=== PATIENT | female | born 1965 | race Caucasian/White ===

== ENCOUNTER 2016-05-15 19:43 | Inpatient (IN) ==
[2016-05-15] MEDS ORDERED: MVI, adult with vitamin K 10 ML in 0.9 % Sodium Chloride 1,000 ML IVC ONE (19:54)
[2016-05-15] MEDS ORDERED: Metoclopramide 10 MG/2 ML VIAL IVP ONE (20:03)
[2016-05-15] MEDS ORDERED: Thiamine (B-1) 100 MG in D5% in Water 50 ML IVPB STA (20:04)
[2016-05-15] MEDS ORDERED: Aspirin 81 MG TAB.CHEW PO ONE (20:30)
[2016-05-15] MEDS ORDERED: Nitroglycerin 0.4 MG TAB.SUBL SL PRN (20:31)
[2016-05-15 20:45] LABS: Bilirubin,Urine Moderate (Negative); Blood,Urine Negative (Negative); Clarity,Urine Cloudy (Clear); Color,Urine Orange (Yellow); Glucose,Urine (UA) Normal (Normal); Ketones,Urine Trace mg/dL (Negative); Leukocyte Esterase,Urine Small (Negative); Nitrite,Urine Positive (Negative); Protein,Urine >=300 mg/dL (Neg-Trace); Specific Gravity,Urine > 1.030 (1.010-1.025); Urobilinogen,Urine Normal (Normal)
[2016-05-15] MEDS ORDERED: VITAMIN K IVC ONE (20:45)
[2016-05-15] MEDS ORDERED: [UNRECOGNIZED DRUG - OTHER] IVC ONE (20:45)
[2016-05-15] MEDS ORDERED: THIAMINE IVC ONE (20:45)
[2016-05-15] MEDS ORDERED: MVI IVC ONE (20:45)
[2016-05-15 20:47] LABS: Bacteria,Urine None Seen per hpf (None-Few); Squamous Epithelial Cell,Urine Many per lpf (None-Few); WBC,Urine 50-100 per hpf (0-3)
[2016-05-15 20:49] LABS: Hematocrit 47.4 % (35.3-44.9); Hemoglobin 16.9 g/dL (11.5-15.4); Immature Granulocytes % 0.2 % (0-4); Lymphocytes # 0.4 K/mcL (0.6-4.6); Lymphocytes % 4.9 %; Mean Corpuscular HGB Conc 35.7 g/dL (31.6-35.5); Mean Corpuscular Hemoglobin 33.7 pg (28.0-33.3); Mean Corpuscular Volume 94.6 fL (83.0-100.0); Mean Platelet Volume 9.5 fL (9.4-12.4); Monocytes # 0.4 K/mcL (0.0-1.3); Monocytes % 4.6 %; Neutrophils # 7.4 K/mcL (1.6-8.9); Platelet Count 193 K/mcL (140-400); Red Blood Count 5.01 M/mcL (3.82-4.97); Red Cell Distribution Width 12.6 % (11.5-14.5); Segmented Neutrophils % 90.3 %
[2016-05-15 20:52] LABS: Amphetamine Screen,Urine Negative ng/mL (Cutoff=1000); Barbiturate Screen,Urine Negative ng/mL (Cutoff=200); Benzodiazepines Screen,Urine Positive ng/mL (Cutoff=200); Cannabinoid Screen,Urine Positive ng/mL (Cutoff = 50); Cocaine Screen,Urine Negative ng/mL (Cutoff= 300); Opiate Screen,Urine Positive ng/mL (Cutoff=300); Phencyclidine Screen,Urine Negative ng/mL (Cutoff=25)
[2016-05-15 20:54] LABS: INR 1.1; Prothrombin Time 11.4 Seconds (9.4-12.1)
[2016-05-15 20:58] LABS: Hyaline Casts,Urine Few per lpf (None-Few)
[2016-05-15 21:02] LABS: BUN/Creatinine Ratio 24 (6-26); Blood Urea Nitrogen 25 mg/dL (7-20); Calcium 10.6 mg/dL (8.6-10.8); Carbon Dioxide 30 mEq/L (19-29); Chloride 83 mEq/L (98-109); Glucose 220 mg/dL (70-99); Osmolality,Calculated 299 (280-300); Potassium 2.8 mEq/L (3.5-4.5); Sodium 139 mEq/L (136-145); eGFR For African Americans > 60 (> 60); eGFR For Non-African Americans 54 (> 60)
[2016-05-15 21:06] LABS: Alanine Aminotransferase 47 Units/L (0-55); Albumin/Globulin Ratio 1.2 (1.1-2.2); Alkaline Phosphatase 129 Units/L (38-126); Aspartate Amino Transferase 81 Units/L (5-34); Bilirubin,Direct 0.9 mg/dL (0.0-0.5); Bilirubin,Indirect 1.7 mg/dL (0.0-1.2); Bilirubin,Total 2.6 mg/dL (0.2-1.2); Globulin 4.1 g/dL (2.4-3.5); Magnesium 1.9 mg/dL (1.6-2.6); Phosphorous 4.1 mg/dL (2.3-4.7); Total Protein 9.1 g/dL (6.0-8.3)
[2016-05-15 21:07] LABS: Acetaminophen < 1.0 mcg/mL (10-30); Salicylate < 5.0 mg/dL (15-30)
[2016-05-15] MEDS ORDERED: Potassium Chloride 40 MEQ, Lidocaine 1% 2 ML in D5% in Water 500 ML IVPB ONE (21:16)
--- NOTE | 2016-05-15 21:24 | Emergency Department Note ---
Disposition Clinical Impression: Hypokalemia, Seizure, Abnormal EKG, Chest pain, UTI (urinary tract infection), Nausea and vomiting, Polysubstance abuse Alcohol dependence with withdrawal Qualifiers: Complication of substance-induced condition: uncomplicated Qualified Code(s): F10.230 - Alcohol dependence with withdrawal, uncomplicated Clinical Impression: (Ruled Out): NSTEMI (non-ST elevated myocardial infarction) Disposition: Admitted As Inpatient Condition: Good Referrals: NO,PCP [Primary Care Provider] - Forms: ED Satisfaction Letter Time of Disposition: 21:28 Seizure HPI - General Chief Complaint: ED Seizure Stated Complaint: Seizure Time Seen by Provider: 05/15/16 19:46 Source: patient, EMS Limitations: no limitations Nursing Notes Reviewed: Yes Vital Signs Reviewed: Yes - History of Present Illness HPI Narrative: 51 year old female with HX of alcoholism/pancreatitis/and HTN. Mark had a seizure with EMS and which was witnessed. Mark states she now has chest pain with exertional dyspnea and nausea/vomitting. Mark states that she low bit her tongue. Family states that when she had her seizure that she did not vomit and or have any loss of urine. Patient states that she has been trying ot cut down her alcohol from a 1/5 of vodka daily to 1/2 of 1/5 down to 1/4 of a 1/5. And over the weekend she tried to go completely without but today had a relapse and started drinking again. Mark was actively vomitting on presentation with chest pressure described 10/15. Family members state that she was most recently admitted to the hospital for pancreatitis secondary to alcoholism and had hypokalemia at that time as well. - Related Data Home Medications Medication Instructions Recorded Confirmed No Known Home Drugs 05/15/16 05/15/16 Allergies Allergy/AdvReac Type Severity Reaction Status Date / Time sulfamethoxazole Allergy Hives Verified 04/03/16 08:29 [From Bactrim] trimethoprim [From Bactrim] Allergy Hives Verified 04/03/16 08:29 codeine AdvReac Nausea Verified 03/31/16 13:16 meclizine AdvReac Headache Verified 03/31/16 13:16 Constitutional: Reports: weakness. Denies: fever, chills, weight change Eyes: Denies: eye pain, eye discharge, vision change ENT ED: Denies: ear pain, throat pain, dental pain, hearing loss, epistaxis, congestion, dysphagia Cardiovascular: Reports: chest pain, palpitations, dyspnea on exertion. Denies : edema, syncope Respiratory: Reports: dyspnea. Denies: cough, wheezes, hemoptysis, stridor Gastrointestinal: Reports: nausea, vomiting. Denies: abdominal pain, diarrhea, constipation, hematemesis, melena, hematochezia Genitourinary: Denies: dysuria, frequency, hematuria, discharge Musculoskeletal: Denies: back pain, neck pain, arthralgia, myalgia Integumentary: Denies: rash, abrasion, lesions Neurological: Denies: headache, weakness, numbness, paresthesias, confusion, abnormal gait, vertigo Psychiatric: Denies: anxiety, depression, suicidal thoughts, homicidal thoughts , auditory hallucinations, visual hallucinations Past Medical History - Past Medical History Medical history: Reports: no medical history Surgical history: Reports: , other (Colonoscopy last in 2012, endometrial ablation) Psychiatric history: Reports: no psych history DIETITIAN HELPER history: Reports: no DIETITIAN HELPER history - Social History Smoking Status: Current every day smoker Smokeless Tobacco Status: No Alcohol use: Reports: none Drug use: Reports: none Physical Exam - General Limitations: no limitations General appearance: appears intoxicated, cachectic - Head Head exam: atraumatic, normocephalic, normal inspection - Eye Eye exam: Present: normal appearance, PERRL, EOMI - Expanded Eye Exam Eyelids: bilateral: normal inspection Pupils: Left: reactive - ENT ENT exam: normal exam, normal oropharynx, mucous membranes moist - Expanded ENT Exam External ear exam: Present: normal external inspection Mouth exam: Present: normal external inspection Teeth exam: Present: normal inspection Throat exam: Present: normal inspection - Neck Neck exam: Present: normal inspection, full ROM, trachea midline - Chest Chest inspection: Present: normal inspection, symmetric chest wall rise - Respiratory Respiratory exam: Present: normal lung sounds bilaterally - Cardiovascular Cardiovascular exam: Present: normal rhythm, tachycardia, normal heart sounds - Abdominal Exam Abdominal exam: Present: soft, Non-Tender. Absent: tenderness, distention, guarding, rebound, rigidity - Extremities Exam Extremities exam: Present: normal inspection, full ROM. Absent: tenderness, pedal edema - Expanded Upper Extremity Exam Shoulder exam: Present: normal inspection, full ROM Arm exam: Present: normal inspection, full ROM Elbow exam: Present: normal inspection, full ROM Forearm/Wrist exam: Present: normal inspection, full ROM Hand exam: Present: normal inspection, full ROM Vascular exam: Normal: capillary refill, radial pulse - Expanded Lower Extremity Exam Hip/Pelvis exam: Present: normal inspection, full ROM Upper leg exam: Present: normal inspection, full ROM Knee exam: Present: normal inspection, full ROM Lower leg exam: Present: normal inspection, full ROM Ankle exam: Present: normal inspection, full ROM Foot/toe exam: Present: normal inspection, full ROM Neurovascular/Tendon exam: Absent: motor deficit, sensory deficit, tendon deficit - Back Exam Back exam: Present: normal inspection, full ROM. Absent: tenderness - Neurological Exam Neurological exam: Present: alert, oriented X3 - Expanded Neurological Exam Patient oriented to: Present: person, place, time Coma Scale Eye Opening: Spontaneous Coma Scale Motor Response: Obeys Commands Coma Scale Verbal Response: Oriented Coma Scale Total: 15 - Psychiatric Psychiatric exam: Present: normal affect, normal mood - Skin Skin exam: Present: warm, dry, intact, normal color Course - Reevaluation(s) Reevaluation #1: we will do alcohol withdrawl protocol and treat her as NSTEMI secondary to new ST depression in lateral leads. Patient will also have banana bag given and protonix for GI protection. Chest pain is now resolved after nitro therapy Time: 21:26 - Consultations Consultation #1: attending spoke with Dr. Ingram (cards) and they will see him in consult with admission to hospitalist. Vital Signs Temperature 98.2 F 05/15/16 19:46 Pulse Rate 118 05/15/16 19:46 Respiratory Rate 12 05/15/16 19:46 Blood Pressure 148/117 05/15/16 19:46 O2 Sat by Pulse Oximetry 97 05/15/16 19:46 Temperature 98.2 F 05/15/16 19:46 Pulse Rate 106 05/15/16 22:32 Respiratory Rate 16 05/15/16 22:32 Blood Pressure 158/100 05/15/16 22:32 O2 Sat by Pulse Oximetry 92 05/15/16 22:32 Oxygen Delivery Oxygen Delivery Room Air Seizure - Lab Data Result diagrams: 05/15/16 20:39 05/15/16 20:39 Lab Results 05/15/16 05/15/16 05/15/16 Range/Units 19:46 20:30 20:30 WBC (4.3-11.1) K/mcL RBC (3.82-4.97) M/mcL Hgb (11.5-15.4) g/dL Hct (35.3-44.9) % MCV (83.0-100.0) fL MCH (28.0-33.3) pg MCHC (31.6-35.5) g/dL RDW (11.5-14.5) % Plt Count (140-400) K/mcL MPV (9.4-12.4) fL Immature Gran % (0-4) % Seg Neutrophils % % Lymphocytes % % Monocytes % % Eosinophils % % Basophils % % Neutrophils # (1.6-8.9) K/mcL Lymphocytes # (0.6-4.6) K/mcL Monocytes # (0.0-1.3) K/mcL Eosinophils # (0.0-0.6) K/mcL Basophils # (0.0-0.2) K/mcL PT (9.4-12.1) Seconds INR APTT (26.0-36.0) Seconds Sodium (136-145) mEq/L Potassium (3.5-4.5) mEq/L Chloride (98-109) mEq/L Carbon Dioxide (19-29) mEq/L BUN (7-20) mg/dL Creatinine (0.57-1.11) mg/dL Est GFR ( Amer) (> 60) Est GFR (Non-Af Amer) (> 60) BUN/Creatinine Ratio (6-26) Glucose (70-99) mg/dL POC Glucose 230 H (58-89) Calculated Osmolality (280-300) Calcium (8.6-10.8) mg/dL Phosphorus (2.3-4.7) mg/dL Magnesium (1.6-2.6) mg/dL Total Bilirubin (0.2-1.2) mg/dL Direct Bilirubin (0.0-0.5) mg/dL Indirect Bilirubin (0.0-1.2) mg/dL AST (5-34) Units/L ALT (0-55) Units/L Alkaline Phosphatase (38-126) Units/L Troponin I (0-0.03) ng/mL Serum Total Protein (6.0-8.3) g/dL Albumin (3.5-5.0) g/dL Globulin (2.4-3.5) g/dL Albumin/Globulin Ratio (1.1-2.2) Lipase (8-78) Units/L Urine Color [place] A (Yellow) Urine Clarity Cloudy A (Clear) Urine pH 6.0 (5.0-8.0) pH Units Ur Specific [place] > 1.030 H (1.010-1.025) Urine Protein >=300 H (Neg-Trace) mg/dL Urine Glucose (UA) Normal (Normal) mg/dL Urine Ketones Trace H (Negative) mg/dL Urine Blood Negative (Negative) Urine Nitrite Positive A (Negative) Urine Bilirubin Moderate H (Negative) Urine Urobilinogen Normal (Normal) mg/dL Ur Leukocyte Esterase Small H (Negative) Urine Microscopic RBC 5-15 H (0-3) per hpf Urine Microscopic WBC 50-100 H (0-3) per hpf Ur Squamous Epith Cells Many H (None-Few) per lpf Urine Bacteria None Seen (None-Few) per hpf Hyaline Casts Few (None-Few) per lpf Urine Yeast Test Not Performed Ur Culture Indicated? YES A (NO) Salicylates (15-30) mg/dL Urine Opiates Screen Positive H (Qclyih=322) ng/mL Acetaminophen (10-30) mcg/mL Ur Barbiturates Screen Negative (Gskejr=728) ng/mL Ur Phencyclidine Scrn Negative (Cutoff=25) ng/mL Ur Amphetamines Screen Negative (Xrepxo=5511) ng/mL U Benzodiazepines Scrn Positive H (Dooztl=063) ng/mL Urine Cocaine Screen Negative (Cutoff= 300) ng/mL U Marijuana (THC) Screen Positive H (Cutoff = 50) ng/mL Ethyl Alcohol (0-10) mg/dL 05/15/16 05/15/16 05/15/16 Range/Units 20:39 20:39 20:39 WBC (4.3-11.1) K/mcL RBC (3.82-4.97) M/mcL Hgb (11.5-15.4) g/dL Hct (35.3-44.9) % MCV (83.0-100.0) fL MCH (28.0-33.3) pg MCHC (31.6-35.5) g/dL RDW (11.5-14.5) % Plt Count (140-400) K/mcL MPV (9.4-12.4) fL Immature Gran % (0-4) % Seg Neutrophils % % Lymphocytes % % Monocytes % % Eosinophils % % Basophils % % Neutrophils # (1.6-8.9) K/mcL Lymphocytes # (0.6-4.6) K/mcL Monocytes # (0.0-1.3) K/mcL Eosinophils # (0.0-0.6) K/mcL Basophils # (0.0-0.2) K/mcL PT 11.4 (9.4-12.1) Seconds INR 1.1 APTT 26.0 (26.0-36.0) Seconds Sodium (136-145) mEq/L Potassium (3.5-4.5) mEq/L Chloride (98-109) mEq/L Carbon Dioxide (19-29) mEq/L BUN (7-20) mg/dL Creatinine (0.57-1.11) mg/dL Est GFR ( Amer) (> 60) Est GFR (Non-Af Amer) (> 60) BUN/Creatinine Ratio (6-26) Glucose (70-99) mg/dL POC Glucose (58-89) Calculated Osmolality (280-300) Calcium (8.6-10.8) mg/dL Phosphorus 4.1 (2.3-4.7) mg/dL Magnesium 1.9 (1.6-2.6) mg/dL Total Bilirubin 2.6 H (0.2-1.2) mg/dL Direct Bilirubin 0.9 H (0.0-0.5) mg/dL Indirect Bilirubin 1.7 H (0.0-1.2) mg/dL AST 81 H (5-34) Units/L ALT 47 (0-55) Units/L Alkaline Phosphatase 129 H (38-126) Units/L Troponin I (0-0.03) ng/mL Serum Total Protein 9.1 H (6.0-8.3) g/dL Albumin 5.0 (3.5-5.0) g/dL Globulin 4.1 H (2.4-3.5) g/dL Albumin/Globulin Ratio 1.2 (1.1-2.2) Lipase (8-78) Units/L Urine Color (Yellow) Urine Clarity (Clear) Urine pH (5.0-8.0) pH Units Ur Specific [place] (1.010-1.025) Urine Protein (Neg-Trace) mg/dL Urine Glucose (UA) (Normal) mg/dL Urine Ketones (Negative) mg/dL Urine Blood (Negative) Urine Nitrite (Negative) Urine Bilirubin (Negative) Urine Urobilinogen (Normal) mg/dL Ur Leukocyte Esterase (Negative) Urine Microscopic RBC (0-3) per hpf Urine Microscopic WBC (0-3) per hpf Ur Squamous Epith Cells (None-Few) per lpf Urine Bacteria (None-Few) per hpf Hyaline Casts (None-Few) per lpf Urine Yeast Ur Culture Indicated? (NO) Salicylates < 5.0 L (15-30) mg/dL Urine Opiates Screen (Orauoh=280) ng/mL Acetaminophen < 1.0 L (10-30) mcg/mL Ur Barbiturates Screen (Extqnd=813) ng/mL Ur Phencyclidine Scrn (Cutoff=25) ng/mL Ur Amphetamines Screen (Gkqriv=8972) ng/mL U Benzodiazepines Scrn (Wrkyvs=489) ng/mL Urine Cocaine Screen (Cutoff= 300) ng/mL U Marijuana (THC) Screen (Cutoff = 50) ng/mL Ethyl Alcohol < 10 (0-10) mg/dL 05/15/16 05/15/16 05/15/16 Range/Units 20:39 20:39 20:39 WBC 8.2 (4.3-11.1) K/mcL RBC 5.01 H (3.82-4.97) M/mcL Hgb 16.9 H (11.5-15.4) g/dL Hct 47.4 H (35.3-44.9) % MCV 94.6 (83.0-100.0) fL MCH 33.7 H (28.0-33.3) pg MCHC 35.7 H (31.6-35.5) g/dL RDW 12.6 (11.5-14.5) % Plt Count 193 (140-400) K/mcL MPV 9.5 (9.4-12.4) fL Immature Gran % 0.2 (0-4) % Seg Neutrophils % 90.3 % Lymphocytes % 4.9 % Monocytes % 4.6 % Eosinophils % 0.0 % Basophils % 0.0 % Neutrophils # 7.4 (1.6-8.9) K/mcL Lymphocytes # 0.4 L (0.6-4.6) K/mcL Monocytes # 0.4 (0.0-1.3) K/mcL Eosinophils # 0.0 (0.0-0.6) K/mcL Basophils # 0.0 (0.0-0.2) K/mcL PT (9.4-12.1) Seconds INR APTT (26.0-36.0) Seconds Sodium 139 (136-145) mEq/L Potassium 2.8 L (3.5-4.5) mEq/L Chloride 83 L (98-109) mEq/L Carbon Dioxide 30 H (19-29) mEq/L BUN 25 H (7-20) mg/dL Creatinine 1.06 (0.57-1.11) mg/dL Est GFR ( Amer) > 60 (> 60) Est GFR (Non-Af Amer) 54 L (> 60) BUN/Creatinine Ratio 24 (6-26) Glucose 220 H (70-99) mg/dL POC Glucose (58-89) Calculated Osmolality 299 (280-300) Calcium 10.6 (8.6-10.8) mg/dL Phosphorus (2.3-4.7) mg/dL Magnesium (1.6-2.6) mg/dL Total Bilirubin (0.2-1.2) mg/dL Direct Bilirubin (0.0-0.5) mg/dL Indirect Bilirubin (0.0-1.2) mg/dL AST (5-34) Units/L ALT (0-55) Units/L Alkaline Phosphatase (38-126) Units/L Troponin I (0-0.03) ng/mL Serum Total Protein (6.0-8.3) g/dL Albumin (3.5-5.0) g/dL Globulin (2.4-3.5) g/dL Albumin/Globulin Ratio (1.1-2.2) Lipase 4 L (8-78) Units/L Urine Color (Yellow) Urine Clarity (Clear) Urine pH (5.0-8.0) pH Units Ur Specific [place] (1.010-1.025) Urine Protein (Neg-Trace) mg/dL Urine Glucose (UA) (Normal) mg/dL Urine Ketones (Negative) mg/dL Urine Blood (Negative) Urine Nitrite (Negative) Urine Bilirubin (Negative) Urine Urobilinogen (Normal) mg/dL Ur Leukocyte Esterase (Negative) Urine Microscopic RBC (0-3) per hpf Urine Microscopic WBC (0-3) per hpf Ur Squamous Epith Cells (None-Few) per lpf Urine Bacteria (None-Few) per hpf Hyaline Casts (None-Few) per lpf Urine Yeast Ur Culture Indicated? (NO) Salicylates (15-30) mg/dL Urine Opiates Screen (Oukihv=494) ng/mL Acetaminophen (10-30) mcg/mL Ur Barbiturates Screen (Rlxbzm=107) ng/mL Ur Phencyclidine Scrn (Cutoff=25) ng/mL Ur Amphetamines Screen (Kticcm=6251) ng/mL U Benzodiazepines Scrn (Cblink=935) ng/mL Urine Cocaine Screen (Cutoff= 300) ng/mL U Marijuana (THC) Screen (Cutoff = 50) ng/mL Ethyl Alcohol (0-10) mg/dL 05/15/16 Range/Units 20:39 WBC (4.3-11.1) K/mcL RBC (3.82-4.97) M/mcL Hgb (11.5-15.4) g/dL Hct (35.3-44.9) % MCV (83.0-100.0) fL MCH (28.0-33.3) pg MCHC (31.6-35.5) g/dL RDW (11.5-14.5) % Plt Count (140-400) K/mcL MPV (9.4-12.4) fL Immature Gran % (0-4) % Seg Neutrophils % % Lymphocytes % % Monocytes % % Eosinophils % % Basophils % % Neutrophils # (1.6-8.9) K/mcL Lymphocytes # (0.6-4.6) K/mcL Monocytes # (0.0-1.3) K/mcL Eosinophils # (0.0-0.6) K/mcL Basophils # (0.0-0.2) K/mcL PT (9.4-12.1) Seconds INR APTT (26.0-36.0) Seconds Sodium (136-145) mEq/L Potassium (3.5-4.5) mEq/L Chloride (98-109) mEq/L Carbon Dioxide (19-29) mEq/L BUN (7-20) mg/dL Creatinine (0.57-1.11) mg/dL Est GFR ( Amer) (> 60) Est GFR (Non-Af Amer) (> 60) BUN/Creatinine Ratio (6-26) Glucose (70-99) mg/dL POC Glucose (58-89) Calculated Osmolality (280-300) Calcium (8.6-10.8) mg/dL Phosphorus (2.3-4.7) mg/dL Magnesium (1.6-2.6) mg/dL Total Bilirubin (0.2-1.2) mg/dL Direct Bilirubin (0.0-0.5) mg/dL Indirect Bilirubin (0.0-1.2) mg/dL AST (5-34) Units/L ALT (0-55) Units/L Alkaline Phosphatase (38-126) Units/L Troponin I 0.00 (0-0.03) ng/mL Serum Total Protein (6.0-8.3) g/dL Albumin (3.5-5.0) g/dL Globulin (2.4-3.5) g/dL Albumin/Globulin Ratio (1.1-2.2) Lipase (8-78) Units/L Urine Color (Yellow) Urine Clarity (Clear) Urine pH (5.0-8.0) pH Units Ur Specific [place] (1.010-1.025) Urine Protein (Neg-Trace) mg/dL Urine Glucose (UA) (Normal) mg/dL Urine Ketones (Negative) mg/dL Urine Blood (Negative) Urine Nitrite (Negative) Urine Bilirubin (Negative) Urine Urobilinogen (Normal) mg/dL Ur Leukocyte Esterase (Negative) Urine Microscopic RBC (0-3) per hpf Urine Microscopic WBC (0-3) per hpf Ur Squamous Epith Cells (None-Few) per lpf Urine Bacteria (None-Few) per hpf Hyaline Casts (None-Few) per lpf Urine Yeast Ur Culture Indicated? (NO) Salicylates (15-30) mg/dL Urine Opiates Screen (Unsurd=774) ng/mL Acetaminophen (10-30) mcg/mL Ur Barbiturates Screen (Nxuktk=353) ng/mL Ur Phencyclidine Scrn (Cutoff=25) ng/mL Ur Amphetamines Screen (Uwfepa=5241) ng/mL U Benzodiazepines Scrn (Crgqzs=855) ng/mL Urine Cocaine Screen (Cutoff= 300) ng/mL U Marijuana (THC) Screen (Cutoff = 50) ng/mL Ethyl Alcohol (0-10) mg/dL - EKG Data EKG attestation: Yes I reviewed and interpreted this EKG. EKG results narrative: sinus tachycardia with rate of 120. mild QT prolongation. NO STEMI. ST depresssion in lateral leads with Avr elevation. 1944 sinus tachycardia with rate of 109. ST depression in lateral leads 2021 righ sided EKG: sinus tachycardia with no ST elevation in lateral leads. ST depression in II, III, avf. 2026 Critical Care Time Critical Care Time: Yes Total Critical Care Time: 30 Attestation: The high probability of a clinically significant, sudden or life threatening deterioration of the [cardiovascular and neurologic] system(s) required my full and direct attention, intervention and personal management. The aggregate critical care time was [30] minutes. This time is in addition to time spent performing reported procedures but includes the following: [X] Data Review and interpretation [X] Patient assessment and monitoring of vital signs [X] Documentation [X] Medication orders and management S.B.A.R. - S.B.A.R. Transition of Care: Admission Situation: Demographics, MOA Background: Presenting Complaint, Relevant PMH, Meds, & Allergies Assessment: Vital Signs, Course and respsone to treatment, Exam Concerns, Patient/Family Expectation, Pertinant Lab Results, Outstanding Labs S.B.A.R. Report Given to: Dr. Stack S.B.A.RColton Repor Time: 21:57 Attestation Statement - Attestation Attestation: I personally interviewed and examined this patient and my medical decision- making was reviewed with the ED Resident Physician, Dr. Del Castillo. I agree with the documented findings, disposition and treatment plan as described except to the extent set forth below. Vision is a 51-year-old white female with a history of chronic alcohol abuse who presents to the emergency department by EMS following an alcohol withdrawal seizure. She arrived with a GCS of 15, awake alert and oriented 4, with no focal neurologic deficits and clear speech on arrival. Patient was complaining of some left-sided chest pain that was nonradiating at a 6 out of 10 in severity associated with nausea and vomiting on arrival. Patient states she has been experiencing this pain for the last 3-4 days intermittently and seems worsened by vomiting that she has been having. Patient reports trying this decrease her amount of alcohol intake over the past 4 days and over the past 24 hours had had almost no use of alcohol which is a considerable decrease for her. Patient began having worsening chest pain, intractable nausea and vomiting and made attempts to drink some alcohol approximately one hour prior to seizure onset. Patient denies any history of prior seizures. Patient denies any abdominal pain, no diaphoresis, no fevers or chills, no hemoptysis or hematemesis. On arrival to the ED patient's initial EKG showed a sinus tachycardia with lateral ST depression, this was compared to prior EKG and appears to be a new finding. Patient was given aspirin and a nitroglycerin trial and was chest pain -free following one nitroglycerin. Nitropaste was applied and patient remained chest pain free throughout her ED course. Serial EKGs remained unchanged. Patient remained hemodynamically stable, received IV fluids and banana bag. CT head was obtained which was unremarkable. Portable chest x-ray was also unremarkable. On lab evaluation patient was found to have low potassium equal to 2.8 with a normal magnesium. Due to occasional nausea and vomiting in the emergency department patient will receive IV replacement of her potassium. Patient continues to be on a media monitor at this time. Patient was also found to have a urinary tract infection or be started on antibiotics. Patient did receive IV antiemetics and is resting more comfortably at this time with no further vomiting. I did speak with Dr. Ingram in cardiology at 2120, and discussed patient's abnormal EKG with chest pain. Patient's troponin is negative. Patient is chest pain-free following aspirin and nitroglycerin administration. At this time he did not recommend any further intervention and agreed to consult on the patient in the morning in regards to her abnormal EKG. I also spoke with Dr. Stack, who accepted the patient for admission and further medical management.
[2016-05-15] MEDS ORDERED: Nitroglycerin 1 INCH/GM PACKET TP ONE (22:00)
[2016-05-16] MEDS ORDERED: *HR* LORazepam 2 MG/ML VIAL IVP ONE (00:50)
[2016-05-16] MEDS ORDERED: *HR* LORazepam 2 MG/ML VIAL IVP PRN (00:51)
[2016-05-16] MEDS ORDERED: Naloxone 0.4 MG/ML INJ IVP PRN (03:16)
[2016-05-16] MEDS ORDERED: Acetaminophen 325 MG TABLET PO ONE (03:19)
--- NOTE | 2016-05-16 03:22 | Internal Med History&Physical ---
Date of Encounter: 05/16/16 Time of Encounter: 02:00 Assessment and Plan (1) Alcohol withdrawal seizure Current visit: Yes Status: Acute Pt abruptly reduced alcohol intake and reportedly had GTC seizures. CT head is negative. Suspect ETOH withdrawal seizures. No need for antiepileptics at this time. Ativan PRN; seizure precautions; Alcohol withdrawal protocol. Qualifiers: Complication of substance-induced condition: uncomplicated Qualified Code(s ): F10.230 - Alcohol dependence with withdrawal, uncomplicated (2) Alcohol dependence with withdrawal Current visit: Yes Status: Acute Start on alcohol withdrawal protocol. Vitamin supplements -thiamin; folate supplements. Social service consult. Qualifiers: Complication of substance-induced condition: with unspecified complication Qualified Code(s): F10.239 - Alcohol dependence with withdrawal, unspecified (3) Hypokalemia Current visit: Yes Status: Acute Replenish Potassium. Monitor potassium, Mg (4) Abnormal EKG Current visit: Yes Status: Acute Monitor Troponin. Abnormal EKG could be secondary her seizures. (5) UTI (urinary tract infection) Current visit: Yes Status: Acute Urine cutures pending. Treat with ceftriaxone Qualifiers: Urinary tract infection type: acute cystitis Hematuria presence: without hematuria Qualified Code(s): N30.00 - Acute cystitis without hematuria (6) Chest pain Current visit: Yes Status: Acute Possibly non-cardiac. Will trend troponins and keep her on cardiac monitor technician. Qualifiers: Chest pain type: other chest pain Qualified Code(s): R07.89 - Other chest pain; R07.8 - Other chest pain (7) Nicotine dependence Current visit: Yes Status: Chronic Pt declined nicotine patches Qualifiers: Nicotine product type: cigarettes Substance use status: unspecified nicotine-induced disorder Qualified Code(s): F17.219 - Nicotine dependence, cigarettes, with unspecified nicotine-induced disorders Internal Medicine - H&P: HPI Chief complaint: Seizures Admitted From: Emergency Dept Plans for Post Hospital Care: Home History of present illness: Ms. Aguilar is a 51 year old female with HX of alcoholism/pancreatitis/and HTN. Patient reports h/o alcohol abuse and was sober for about 6 months in the past and relapsed. She admits to drinking one fifth vodka a day. She tried to cut down and stop alcohol over the weekend. She apparently had a GTC seizure witnessed by the EMS, hence brought to the ER. She is admitted to the hospitalist service for further management. Pt is keen to come off alcohol. She had episode of seizures, after coming to the medical floor, before I could see her. She reports tongue bite and incontinence of urine, with seizures. She reports sore throat from vomiting. Reports chest pressure on the lower sternal area, non radiating, 8/10. No associated palpitations; no significant improvement with nitroglycerine in the ER. She denies h/o abdominal pain, hemetemesis, melena, hematochezia, dysuria, weakness of extremities. Past Med Surg Social Fam HX - Past Medical History Medical history: GERD, hypertension, seizures Psychiatric history: no psych history - Past Surgical History Surgical History: , other - Social History Smoking Status: Current every day smoker Packs per day: 2 Smokeless Tobacco Status: No Alcohol use: heavy Drug use: opiates - Family History Mother Age: 75 Family Member Ethnicity: Non- Living Status: Still Living Hx Family Musculoskeletal Disorders: Yes (Arthritis, Bilateral TKR) Father Age: 76 Family Member Ethnicity: Non- Living Status: Still Living Hx Family Cardiac Disorders: Yes (Pacemaker, 2 NH,) Internal Medicine - H&P: Meds No Known Home Drugs 05/15/16 [History] Allergies sulfamethoxazole [From Bactrim] Allergy (Verified 04/03/16 08:29) Hives trimethoprim [From Bactrim] Allergy (Verified 04/03/16 08:29) Hives codeine Adverse Reaction (Verified 03/31/16 13:16) Nausea meclizine Adverse Reaction (Verified 03/31/16 13:16) Headache All Systems PM: A 10-system review of systems was performed and is negative for pertinent findings except as documented above in the HPI. - Constitutional Vitals: Temp Pulse Resp BP Pulse Ox 98.7 F 102 17 143/97 97 05/16/16 00:16 05/16/16 00:16 05/16/16 00:16 05/16/16 00:16 05/16/16 00:16 Exam: Gen: Not in acute distress at the time of my evaluation. HEENT: No conjunctival palor or scleral icterus Neck: No obvious neck swellings Lungs: Clear to auscultation Cardiac: Regular rate and rhythm Chest wall: Left lower sternal tenderness present Abdomen: Mild epigastric tenderness present Neuro: No gross localizing deficits Psych: AAO x 3; fluent speech; No delusions or hallucinations; suicidal or homicidal ideations at the time of my evaluation Extremities: No significant leg edema Skin: no generalized rash Internal Med - H&P Results - Labs CBC & Chem 7: 05/16/16 04:14 05/17/16 04:46 - EKG Data -: EKG Interpreted by Myself EKG shows normal: sinus rhythm - EKG Data EKG comments: Non specific ST depression noted 05/17/16 12:51 - Impressions ITS Impressions Head CT 05/15/16 19:51 IMPRESSION: No acute intracranial abnormality. D/ / Mekhi Pugh MD / Mekhi Pugh MD Interpreting Provider: Mekhi Pugh MD Chest X-Ray 05/15/16 19:52 IMPRESSION: No acute process. D/ / Mekhi Pugh MD / Mekhi Pugh MD Interpreting Provider: Mekhi Pugh MD
[2016-05-16] MEDS ORDERED: Chloraseptic Spray 177 ML BOTTLE MM PRN (03:23)
[2016-05-16] MEDS ORDERED: Pantoprazole 40 MG VIAL IVP SCH (03:23)
[2016-05-16] MEDS ORDERED: 0.9 % Sodium Chloride 1,000 ML IVC SCH (03:30)
[2016-05-16] MEDS: Magic Mouthwash 10 ML UD Cup PO SCH ×4 (04:09→16:28)
[2016-05-16] MEDS ORDERED: *HR* Promethazine 25 MG/ML VIAL IVP ONE (04:13)
[2016-05-16 04:47] LABS: Hematocrit 41.5 % (35.3-44.9); Immature Granulocytes % 0.5 % (0-4); Lymphocytes # 0.6 K/mcL (0.6-4.6); Lymphocytes % 7.1 %; Mean Corpuscular HGB Conc 34.7 g/dL (31.6-35.5); Mean Corpuscular Hemoglobin 33.3 pg (28.0-33.3); Mean Corpuscular Volume 96.1 fL (83.0-100.0); Mean Platelet Volume 9.6 fL (9.4-12.4); Monocytes # 0.7 K/mcL (0.0-1.3); Monocytes % 7.8 %; Neutrophils # 7.3 K/mcL (1.6-8.9); Platelet Count 148 K/mcL (140-400); Red Blood Count 4.32 M/mcL (3.82-4.97); Red Cell Distribution Width 12.5 % (11.5-14.5); Segmented Neutrophils % 84.6 %
[2016-05-16 04:48] LABS: Hemoglobin 14.4 g/dL (11.5-15.4)
[2016-05-16 05:17] LABS: BUN/Creatinine Ratio 29 (6-26); Blood Urea Nitrogen 23 mg/dL (7-20); Calcium 9.6 mg/dL (8.6-10.8); Carbon Dioxide 34 mEq/L (19-29); Chloride 89 mEq/L (98-109); Chol/HDL Ratio 4.1 (0-4.9); Cholesterol 236 mg/dL (< 200); Glucose 100 mg/dL (70-99); HDL Cholesterol 58 mg/dL (40-59); LDL Cholesterol,Calculated 156 mg/dL (0-99); Magnesium 2.1 mg/dL (1.6-2.6); Osmolality,Calculated 284 (280-300); Potassium 3.1 mEq/L (3.5-4.5); Sodium 135 mEq/L (136-145); Triglycerides 110 mg/dL (< 150); eGFR For African Americans > 60 (> 60); eGFR For Non-African Americans > 60 (> 60)
[2016-05-16] MEDS: *HR* Heparin 5,000 UNIT/ML VIAL SQ SCH ×2 (06:19→16:29)
[2016-05-16] MEDS ORDERED: Famotidine 20 MG TABLET PO SCH (07:30)
[2016-05-16] MEDS: Thiamine (B-1) 100 MG TABLET PO SCH (07:46)
[2016-05-16] MEDS: Folic Acid 1 MG TABLET PO SCH (07:46)
[2016-05-16] MEDS: Vitamin B Complex/Vit C/Vit E 1 EACH TABLET PO SCH (07:46)
--- NOTE | 2016-05-16 09:14 | Event Note ---
Date of Encounter: 05/16/16 Time of Encounter: 08:55 Patient doing better. Denies any new episodes of seizures this morning. No palpitations, dizziness or anxiety symptoms. We will continue monitoring for alcohol withdrawal symptoms and continue seizure precautions. Replace potassium. Continue IV hydration.
[2016-05-16] MEDS: 0.9 % Sodium Chloride w KCl 40 MEQ/1,000 ML MLS IVC SCH ×2 (09:48→18:47)
--- NOTE | 2016-05-16 18:50 | Electrocardiograph Report ---
[address] [place], [place] [address] Test Date: 2016-05-15 Pat Name: Theodora Aguilar Department: 102 Room: 2A51 Gender: F Irrigation System Installer: Sourav : 1965 Requested By: Kalpana Gamez Order Number: [id number] Reading MD: Martha Ingram Measurements Intervals [place] Rate: 120 P: 79 CT: 152 QRS: 89 QRSD: 89 T: 66 QT: 426 QTc: 497 Interpretive Statements SINUS TACHYCARDIA NONSPECIFIC ST \T\ T-WAVE ABNORMALITY, CONSIDER ISCHEMIA ABNORMAL RHYTHM ECG Electronically Signed On 05-16-2016 18:48:23 EDT by Martha Ingram
--- NOTE | 2016-05-16 18:51 | Electrocardiograph Report ---
[address] [place] [address] Test Date: 2016-05-15 Pat Name: Theodora Aguilar Department: 105 Room: 2A51 Gender: F Fisher Scallop: : 1965 Requested By: Araceli Del Castillo Order Number: [id number] Reading MD: Martha Ingram Measurements Intervals [place] Rate: 116 P: 80 VA: 147 QRS: 82 QRSD: 94 T: 17 QT: 338 QTc: 407 Interpretive Statements SINUS TACHYCARDIA POSSIBLE RIGHT ATRIAL ENLARGEMENT [0.25mV P WAVE] ANTEROLATERAL MYOCARDIAL INFARCTION [40+ ms Q WAVE IN I/aVL/V3-V6], OF INDETERMINATE AGE ST DEVIATION AND MODERATE T-WAVE ABNORMALITY, CONSIDER INFERIOR ISCHEMIA [-0.1+ mV T WAVE IN II/aVF] Electronically Signed On 05-16-2016 18:49:41 EDT by Martha Ingram
[2016-05-17 05:26] LABS: BUN/Creatinine Ratio 17 (6-26); Calcium 8.8 mg/dL (8.6-10.8); Carbon Dioxide 25 mEq/L (19-29); Chloride 97 mEq/L (98-109); Glucose 108 mg/dL (70-99); Osmolality,Calculated 274 (280-300); Potassium 3.5 mEq/L (3.5-4.5); Sodium 132 mEq/L (136-145); eGFR For African Americans > 60 (> 60); eGFR For Non-African Americans > 60 (> 60)
[2016-05-17 05:42] LABS: Blood Urea Nitrogen 11 mg/dL (7-20)
[2016-05-17] MEDS: Magic Mouthwash 10 ML UD Cup PO SCH ×3 (06:52→16:33)
[2016-05-17] MEDS: *HR* Heparin 5,000 UNIT/ML VIAL SQ SCH ×2 (07:01→17:20)
[2016-05-17] MEDS ORDERED: *HR* LORazepam 2 MG/ML VIAL IM STA (07:28)
--- NOTE | 2016-05-17 09:12 | Internal Med Progress Note ---
Date of Encounter: 05/17/16 Time of Encounter: 09:00 - Assessment and plan (1) Alcohol dependence with withdrawal Current Visit: Yes Status: Acute Assessment and plan: Patient with acute alcohol withdrawal and delirium symptoms. Will continue CIWA protocol. High risk for complications. Monitor vital signs closely. Ativan intravenously as needed. Qualifiers: Complication of substance-induced condition: with delirium Qualified Code(s ): F10.231 - Alcohol dependence with withdrawal delirium (2) Hypokalemia Current Visit: Yes Status: Acute Assessment and plan: This has improved with replacement. Potassium is 3.5 today. (3) Seizure Current Visit: Yes Status: Acute Assessment and plan: No further episodes of seizures. Most likely seizure episode was related to alcohol withdrawal. (4) Abnormal EKG Current Visit: Yes Status: Acute Assessment and plan: Consult cardiology for the further recommendations. Patient's troponins have been negative. No chest pain. (5) UTI (urinary tract infection) Current Visit: Yes Status: Acute Assessment and plan: Urine culture has been negative so far. On ceftriaxone. Will await culture results. Qualifiers: Urinary tract infection type: acute cystitis Hematuria presence: without hematuria Qualified Code(s): N30.00 - Acute cystitis without hematuria (6) Nausea and vomiting Current Visit: Yes Status: Resolved Assessment and plan: This has improved now. Patient is tolerating diet well. Qualifiers: Vomiting type: unspecified Vomiting Intractability: non-intractable Qualified Code(s): R11.2 - Nausea with vomiting, unspecified (7) Polysubstance abuse Current Visit: Yes Status: Acute Assessment and plan: rag production worker has been consulted to provide resources for substance abuse. - Subjective Interval history: Patient is complaining of auditory hallucinations. She is also more anxious and having increasing tremors. No further episodes of seizures. On CIWA protocol she was more agitated this morning and required Ativan. - Constitutional Vitals: Temp Pulse Resp BP Pulse Ox 98.9 F 71 18 167/94 98 05/17/16 06:44 05/17/16 06:44 05/17/16 06:44 05/17/16 06:44 05/17/16 06:44 General appearance: Present: cooperative, mild distress, A&O X 3, answers questions appropriately - ENT Additional comments: Left side of the tongue bruised from bite during her seizure episode. It extends all the way to the back of her tongue on the left side involving the left half of the tongue - Neck Neck exam general surgery: Present: supple, trachea midline. Absent: lymphadenopathy - Respiratory Respiratory exam: Present: CTAB. Absent: accessory muscle use, rales, rhonchi, wheezes - Cardiovascular Cardiovascular exam: Present: RRR, +S1, +S2. Absent: diastolic murmur, gallop, rubs, systolic murmur - GI/Abdominal GI/Abdominal exam: Present: normal bowel sounds, soft, no peritoneal signs. Absent: distended, tenderness - Extremities Exam Extremities exam: Present: warm, radial pulses palpable and symetrical. Absent : calf tenderness, cyanotic, pedal edema - Neurological Exam Neurological exam: Present: CN II-XII intact, oriented X3, no focal deficits. Absent: facial droop, speech deficit Additional comments: Bilateral tremors - Psychiatric Psychiatric exam: Present: anxious Internal Medicine: Result - Labs CBC & Chem 7: 05/16/16 04:14 05/17/16 04:46 Labs: BMP 05/17/16 04:46 Sodium 132 L Potassium 3.5 Chloride 97 L Carbon Dioxide 25 BUN 11 D Creatinine 0.63 Glucose 108 H Calcium 8.8 Cardiac Enzymes 05/16/16 Range/Units 09:21 Troponin I 0.01 (0-0.03) ng/mL - ABG Interpretation ABG results: PT/INR, D-dimer PT 11.4 Seconds (9.4-12.1) 05/15/16 20:39 Consult Discharge Plan - Plan Referrals: NO,PCP [Primary Care Provider] - - Attending Attestation This document has been at least partially created by [employer] recognition technology by Dr. Gamez. Errors in grammar, wording or other phrases may exist. If errors are found after the documentation is signed, they will be addressed individually in the addendum section of this document when appropriate.
[2016-05-17] MEDS: Vitamin B Complex/Vit C/Vit E 1 EACH TABLET PO SCH (09:14)
[2016-05-17] MEDS: *HR* LORazepam 2 MG/ML VIAL IVP PRN ×4 (09:14→20:39)
[2016-05-17] MEDS: Folic Acid 1 MG TABLET PO SCH (09:14)
[2016-05-17] MEDS: Thiamine (B-1) 100 MG TABLET PO SCH (09:14)
[2016-05-17] MEDS: 0.9 % Sodium Chloride w KCl 20 MEQ/1,000 ML MLS IVC SCH ×2 (10:24→14:32)
[2016-05-17] MEDS: Nicotine 2 MG GUM BC PRN (10:32)
[2016-05-17] MEDS ORDERED: Haloperidol Lactate 5 MG/ML VIAL IVP ONE (11:10)
--- NOTE | 2016-05-17 11:15 | Cardiology Consult Note ---
Date of Encounter: 05/17/16 Time of Encounter: 11:15 Assessment and Plan (1) Abnormal EKG Current Visit: Yes Status: Acute Abnormal EKG with ST-T changes throughout on admission. In setting of K 2.8. EKG repeated today with significant improvement/resolution of ST changes. Troponins negative x 3. Pt denies chest pain currently, but does admit to chest pain approximately once per week at both rest and exertion, sometimes worsened on exertion. Will check echo to evaluate structure and function. If no significant findings, will sign off and recommend outpt follow-up and outpt stress test once her acute withdrawing is resolved. Risk factors for CAD include tobacco abuse, HTN, family hx. Anticipate sign off if no significant findings on echo. (2) Chest pain Current Visit: Yes Status: Acute Plan as above. Echo while inpt. If no significant findings, plan for outpt stress test. Troponins negative x 3. Acute EKG changes resolved with electrolyte replacement. Qualifiers: Chest pain type: unspecified Qualified Code(s): R07.9 - Chest pain, unspecified (3) Tobacco abuse Current Visit: No Status: Chronic Smoking cessation counseling given. (4) Alcohol dependence with withdrawal Current Visit: Yes Status: Acute Management per primary team. Qualifiers: Complication of substance-induced condition: with delirium Qualified Code(s ): F10.231 - Alcohol dependence with withdrawal delirium Discussion w patient/family: The assessment and plan as outlined above was discussed with the patient and/or family members who expressed understanding and agreement. All questions were answered. Thank you for involving us in the care of your patient. Please call with any questions. I will discuss all the above with Dr. Martha Ingram and make change as necessary. History of Present Illness Consult date: 05/17/16 Requesting physician: Kalpana Gamez Consult reason: Abnormal EKG Chief complaint: Seizures, ETOH withdrawal History of present illness: Ms. Aguilar is a 51 year old female with PMH of HTN, ETOH abuse, tobacco abuse that presented to ED after having a seizure at home. Drinks 1/5 of Vodka daily, was trying to wean herself off and had a seizure. Upon presentation, found to have a potassium of 2.8 and abnormal EKG. Troponins negative x 3. Cardiology consulted. Pt is currently very confused from ETOH withdraws. Upon questioning she admits to smoking up to 3PPD since the age of 8. She reports her father had CAD, PCI in his 60s and an uncle with PCI in his 50s. She reports intermittent chest pain for years described as heaviness, occurring approximately once per week, occurs with both rest and exertion, sometimes worsened by exertion. She reports chronic dyspnea that she attributes to her tobacco abuse. EKG repeated today once K was improved. EKG is improved. Past Med Surg Social Fam HX - Past Medical History Medical history: GERD, hypertension, seizures Psychiatric history: no psych history - Past Surgical History Surgical History: , other - Social History Smoking Status: Current every day smoker Packs per day: 2 Smokeless Tobacco Status: No Alcohol use: heavy Drug use: opiates - Family History Mother Age: 75 Family Member Ethnicity: Non- Living Status: Still Living Hx Family Musculoskeletal Disorders: Yes (Arthritis, Bilateral TKR) Father Age: 76 Family Member Ethnicity: Non- Living Status: Still Living Hx Family Cardiac Disorders: Yes (Pacemaker, 2 AK,) Medications and Allergies No Known Home Drugs 05/15/16 [History] Allergies sulfamethoxazole [From Bactrim] Allergy (Verified 04/03/16 08:29) Hives trimethoprim [From Bactrim] Allergy (Verified 04/03/16 08:29) Hives codeine Adverse Reaction (Verified 03/31/16 13:16) Nausea meclizine Adverse Reaction (Verified 03/31/16 13:16) Headache All Systems Review: A 10-system review of systems was performed and is negative for pertinent findings except as documented above in the HPI. - Cardiovascular Cardiovascular: as per HPI, chest pain at rest, chest pain with exertion, dyspnea on exertion - Respiratory Respiratory: dyspnea Physical Examination Vital Signs Temp Pulse Resp BP Pulse Ox 05/17/16 06:44 98.9 F 71 18 167/94 98 05/17/16 03:56 99.8 F H 73 15 164/89 97 05/16/16 22:58 99.8 F H 98 17 157/95 99 05/16/16 19:45 99.1 F 96 17 158/91 98 05/16/16 17:10 99.5 F 105 16 159/101 97 05/16/16 11:52 99.2 F 100 16 139/91 97 Intake and Output 05/16/16 05/17/1605/17/17 23:59 07:59 15:59 Intake Total 998 / 998 Output Total 200 / 200 0 / 0 Balance 998 / 998 -200 / -200 0 / 0 Intake: IV Fluids 998 / 998 KCl 40mEq in 0.9% Sodium 998 / 998 Chloride 40 meq In 1,000 ml @ 100 mls/hr IVC .Q10H [facility] Rx#:[id number] Output: Urine 200 / 200 0 / 0 Other: Stool Size Large Stool Consistency formed Stool Color Brown Black # Voids 2 1 # Bowel Movements 1 Weight 51.1 kg Blood Glucose* 90 86 Patient Weight 05/17/16 23:59 Weight 51.1 kg General: Conversant HEENT: Atraumatic, Normocephaly, Mucus Membranes Moist Neck: No JVD, Normal carotid pulses Cardiac: Reg Rate and Rhythm, Normal S1 and S2, No Murmur Lungs: Normal Breath Sounds, No Wheeze, Rales, Rhonchi Neuro: Alert and responsive, Other (confused ) Abdomen: Soft, Non-Tender Skin: No rashes noted on visualized skin Musculoskeletal: No Chest Wall Tenderness Extremities: No Clubbing, No Cyanosis, No Edema, Normal Pulses Results 05/16/16 04:14 05/17/16 04:46 Lab Results 05/17/16 04:46 Sodium 132 L Potassium 3.5 Chloride 97 L Carbon Dioxide 25 BUN 11 D Creatinine 0.63 Glucose 108 H Calcium 8.8 BMP 05/17/16 Range/Units 04:46 Sodium 132 L (136-145) mEq/L Potassium 3.5 (3.5-4.5) mEq/L Chloride 97 L (98-109) mEq/L Carbon Dioxide 25 (19-29) mEq/L BUN 11 D (7-20) mg/dL Creatinine 0.63 (0.57-1.11) mg/dL Glucose 108 H (70-99) mg/dL Calcium 8.8 (8.6-10.8) mg/dL Active Medications Carvedilol (Coreg) 3.125 mg PO BIDWM [facility] PRN Reason: Protocol Stop: 11/15/16 18:23 Last Admin: 05/17/16 09:14 Dose: 3.125 mg Folic Acid (Folic Acid) 1 mg PO DAILY [facility] Stop: 11/15/16 09:01 Last Admin: 05/17/16 09:14 Dose: 1 mg Heparin Sodium (Porcine) (Heparin) 5,000 unit SQ Q12HR [facility] Stop: 11/15/16 06:01 Last Admin: 05/17/16 07:01 Dose: Not Given Hydralazine HCl (Hydralazine) 10 mg IVP Q6HR PRN PRN Reason: Hypertension Stop: 11/15/16 20:32 Ceftriaxone Sodium 1,000 mg/ (Dextrose) 100 mls @ 200 mls/hr IVPB Q24H [facility] Stop: 11/15/16 04:01 Last Admin: 05/17/16 04:19 Dose: 200 mls/hr Potassium Chloride/Sodium Chloride (Kcl 20 Meq In 0.9% Sodium Chloride) 20 meq in 1,000 mls @ 100 mls/hr IVC .Q10H [facility] Stop: 11/16/16 09:31 Last Admin: 05/17/16 10:24 Dose: 100 mls/hr Lorazepam (Ativan) 1 mg IVP Q1H PRN PRN Reason: Alcohol Withdrawal Stop: 11/15/16 00:52 Last Admin: 05/17/16 10:27 Dose: 1 mg Lorazepam (Ativan) 2 mg IVP Q4HR PRN PRN Reason: CIWA Score of 10-21 Stop: 11/15/16 00:52 Last Admin: 05/17/16 09:14 Dose: 2 mg Lorazepam (Ativan) 4 mg IVP Q4HR PRN PRN Reason: CIWA Score of 22-45 Stop: 11/15/16 00:52 Multi-Ingredient Mouthwash/Gargle (Magic Mouthwash) 10 ml PO TIDAC [facility] Stop: 11/15/16 03:31 Last Admin: 05/17/16 06:52 Dose: 10 ml Multi-Ingredient Mucositis [place] (Chloraseptic) 2 spray MM QID PRN PRN Reason: Sore Throat Stop: 11/15/16 03:24 Last Admin: 05/16/16 04:16 Dose: 2 spray Naloxone HCl (Narcan) 0.4 mg IVP Q2MIN PRN PRN Reason: Opioid Reversal Stop: 11/15/16 03:17 Nicotine Polacrilex (Nicorette Gum) 2 mg BC Q2H PRN PRN Reason: Nicotine Cravings Stop: 11/16/16 08:47 Last Admin: 05/17/16 10:32 Dose: 2 mg Nitroglycerin (Nitroglycerin) 0.4 mg SL Q5MIN PRN PRN Reason: Chest Pain Stop: 11/14/16 20:32 Last Admin: 05/15/16 20:38 Dose: 0.4 mg Omeprazole (Prilosec) 40 mg PO DAILY@0630 [facility] PRN Reason: Protocol Stop: 11/16/16 06:31 Last Admin: 05/17/16 07:01 Dose: Not Given Potassium Chloride (Potassium Chloride) 20 meq PO DAILY [facility] Stop: 11/15/16 09:16 Last Admin: 05/17/16 09:14 Dose: 20 meq Thiamine HCl (Vitamin B-1) 100 mg PO DAILY [facility] Stop: 11/15/16 09:01 Last Admin: 05/17/16 09:14 Dose: 100 mg Vitamin B Complex/Vit C/Vit E (Stresstab) 1 each PO DAILY [facility] Stop: 11/15/16 09:01 Last Admin: 05/17/16 09:14 Dose: 1 each - EKG Interpretation EKG results cardiology: personally reviewed, other (24 hour tele AVG HR 94, SR.) Consult Discharge Plan - Plan Referrals: NO,PCP [Primary Care Provider] -
[2016-05-17] MEDS ORDERED: *HR* LORazepam 2 MG/ML VIAL IVP ONE (12:57)
[2016-05-17] MEDS ORDERED: *HR* LORazepam 2 MG/ML VIAL ONE (13:01)
[2016-05-17] MEDS ORDERED: Ziprasidone injection 20 MG/ML VIAL IM ONE (13:13)
[2016-05-17] MEDS ORDERED: Water for inj. (sterile) 10 ML IV ONE (13:26)
[2016-05-17] MEDS ORDERED: LORazepam 20 MG in 0.9 % Sodium Chloride Excel Bg 240 ML IVC SCH (13:30)
[2016-05-17] MEDS: Dexmedetomidine HCl 400 MCG/100 ML MLS IVC SCH (14:05)
[2016-05-18] MEDS: 0.9 % Sodium Chloride w KCl 20 MEQ/1,000 ML MLS IVC SCH ×4 (00:40→23:04)
[2016-05-18] MEDS: Nicotine 2 MG GUM BC PRN (03:21)
[2016-05-18 05:05] LABS: Basophils % 0.3 %; Hematocrit 35.2 % (35.3-44.9); Immature Granulocytes % 0.3 % (0-4); Lymphocytes # 1.3 K/mcL (0.6-4.6); Mean Corpuscular HGB Conc 33.5 g/dL (31.6-35.5); Mean Corpuscular Hemoglobin 33.4 pg (28.0-33.3); Mean Corpuscular Volume 99.7 fL (83.0-100.0); Mean Platelet Volume 10.2 fL (9.4-12.4); Monocytes # 0.4 K/mcL (0.0-1.3); Monocytes % 11.7 %; Platelet Count 100 K/mcL (140-400); Red Blood Count 3.53 M/mcL (3.82-4.97); Red Cell Distribution Width 12.2 % (11.5-14.5); Segmented Neutrophils % 52.7 %
[2016-05-18 05:16] LABS: BUN/Creatinine Ratio 23 (6-26); Blood Urea Nitrogen 16 mg/dL (7-20); Calcium 8.5 mg/dL (8.6-10.8); Carbon Dioxide 19 mEq/L (19-29); Chloride 106 mEq/L (98-109); Glucose 103 mg/dL (70-99); Osmolality,Calculated 281 (280-300); Potassium 3.7 mEq/L (3.5-4.5); Sodium 135 mEq/L (136-145); eGFR For African Americans > 60 (> 60); eGFR For Non-African Americans > 60 (> 60)
[2016-05-18 05:34] LABS: Hemoglobin 11.8 g/dL (11.5-15.4)
[2016-05-18] MEDS: *HR* Heparin 5,000 UNIT/ML VIAL SQ SCH ×2 (06:29→17:42)
--- NOTE | 2016-05-18 07:11 | ECHO - Doppler Report ---
Echocardiogram Name: Theodora Aguilar Date of Study: 05/17/2016 Date: 1965 Ht: 63.0 in Medical Record#: [id number] Age: 51 Wt: 114.0 lb Gender: Female BSA: 1.52 Order #: [id number] Location: [facility] Room #: 2N05 Reading Physician: Jimmie Gray MD, [facility] Pipe Line Inspector: Mariella Ness RDCS Ordering Physician: Avinash Rocha CNP Primary Physician: None Indications: EKG Changes, Chest pain Impressions: LVEF 55-60%. There is hypokinesis of the basal-mid inferoseptum. Mild asymmetric LV septal hypertrophy. No evidence of LVOT obstruction. Mild left ventricular diastolic dysfunction. Normal right ventricular size and function. No significant valvular dysfunction. No evidence of pulmonary hypertension. Left Ventricular Wall Motion: Rest Echo Findings The mid inferior septal and basal inferior septal mendez were hypokinetic. All other wall segments showed normal motion. Findings: Study Quality * Suboptimal echo windows. ECG Findings * Normal sinus rhythm. Left Ventricle * LVEF 55-60%. There is hypokinesis of the basal-mid inferoseptum. * Mild asymmetric LV septal hypertrophy. No evidence of LVOT obstruction. * Mild left ventricular diastolic dysfunction. Right Ventricle * Normal right ventricular size and function. Left Atrium * Normal left atrial size. Right Atrium * Normal right atrial size. Aorta * Aortic root was not well visualized. Appears normal in size. Pericardium * There is no pericardial effusion present. IVC * The IVC is mildly dilated. Aortic Valve * Trileaflet aortic valve. * No aortic stenosis. * Trace aortic regurgitation. Mitral Valve * Normal mitral valve structure. * No mitral stenosis. * Trace mitral regurgitation. Tricuspid Valve * Tricuspid valve not well visualized. * No tricuspid stenosis. * Trace tricuspid regurgitation. * No evidence of pulmonary hypertension. Pulmonic Valve * Pulmonic valve not well visualized. * No pulmonic stenosis. * No pulmonic regurgitation. History Hypertension History of Smoking Years Packs 2 Family History of CAD Measurements: BP: 91/ 75 2D Normal Values RVIDd: 2.00 cm IVSd: 1.30 cm 0.6 - 1.0 cm LVIDd: 3.70 cm 3.7 - 5.6 cm LVPWd: 1.00 cm 0.6 - 1.1 cm LVIDs: 2.40 cm 1.5 - 3.6 cm LA volume: 25 Mitral Valve Peak E:.48 m/sec Peak A:.60 m/sec E/A Ratio:0.8 Tricuspid Valve TV Regurg Peak Grad: 14.00mmHg TV Regurg Peak Gautam: 1.90m/sec Updated by Jimmie Gray MD, [facility] on 05/18/2016 7:05:15 AM electronically signed on 05/18/2016 7:05:48 AM with status of Final Wall Motion Coleman: 1=Normal, 2=Hypokinesis, 3=Akinesis, 4=Dyskinesis, 5=Aneurysmal, 6=Hyperkinetic, X=Not Visualized (Blank)=Missing
[2016-05-18] MEDS: Dexmedetomidine HCl 400 MCG/100 ML MLS IVC SCH (07:43)
[2016-05-18] MEDS: Thiamine (B-1) 100 MG TABLET PO SCH (08:35)
[2016-05-18] MEDS: Vitamin B Complex/Vit C/Vit E 1 EACH TABLET PO SCH (08:35)
[2016-05-18] MEDS: Folic Acid 1 MG TABLET PO SCH (08:36)
[2016-05-18] MEDS: Magic Mouthwash 10 ML UD Cup PO SCH ×3 (08:44→17:41)
--- NOTE | 2016-05-18 11:53 | Electrocardiograph Report ---
[address] [place] [address] Test Date: 2016-05-17 Pat Name: Theodora Aguilar Department: 112 Room: 2N05 Gender: F Facility Administrator: SUSAN : 1965 Requested By: Kalpana Gamez Order Number: [id number] Reading MD: Quirino Duff MD Measurements Intervals [place] Rate: 87 P: 75 ME: 147 QRS: 66 QRSD: 87 T: 63 QT: 385 QTc: 430 Interpretive Statements SINUS RHYTHM ANTEROSEPTAL MYOCARDIAL INFARCTION, OF INDETERMINATE AGE BASELINE ARTIFACT Electronically Signed On 05-18-2016 11:51:44 EDT by Quirino Duff MD
--- NOTE | 2016-05-18 12:04 | Cardiology Progress Note ---
Date of Encounter: 05/18/16 Time of Encounter: 11:40 Assessment and Plan (1) Abnormal EKG Current Visit: Yes Status: Acute Abnormal EKG with ST-T changes throughout on admission. In setting of K 2.8. EKG repeated with significant improvement/resolution of ST changes. Troponins negative x 3. Risk factors for CAD include tobacco abuse, HTN, and family hx. Pt denies chest pain currently, but does admit to chest pain approximately once per week at both rest and exertion, sometimes worsened on exertion. TTE shows preserved LVEF 55-60% with basal-mid inferoseptum hypokinesis. Given acute withdraw, recommend medical management as this time; discussed finding with patient, she agrees with outpatient work-up. Continue betablocker. Will start low-dose asa. No further inpatient recommendations, follow-up with [facility] in 3-4 weeks. Will coordinate appt. (2) Chest pain Current Visit: Yes Status: Acute Troponins negative x 3. Acute EKG changes resolved with electrolyte replacement. Qualifiers: Chest pain type: unspecified Qualified Code(s): R07.9 - Chest pain, unspecified (3) Tobacco abuse Current Visit: Yes Status: Chronic 2ppd smoker for 35+ years. Smoking cessation counseling given. (4) Alcohol dependence with withdrawal Current Visit: Yes Status: Acute Defer mgmt to primary service. Polysubstance abuse. Was started on alcohol withdrawal protocol. Vitamin supplements -thiamin; folate supplements. Social service consult. Qualifiers: Complication of substance-induced condition: with unspecified complication Qualified Code(s): F10.239 - Alcohol dependence with withdrawal, unspecified Discussion w patient/family: The assessment and plan as outlined above was discussed with the patient and/or family members who expressed understanding and agreement. All questions were answered. Thank you for involving us in the care of your patient. Please call with any questions. Subjective Principal diagnosis: Abnormal ECG Interval history: Seen and examined. 1:1 sitter remains at bedside; however patient is alert, oriented, and cooperative today. Denies chest pain or discomfort, shortness of breath, or palpitations overnight. Objective Vital Signs, Last 4 Hours Temp Pulse Resp Pulse Ox 05/18/16 11:54 98.1 F 81 20 100 05/18/16 08:20 61 General: Conversant, No Apparent Distress HEENT: Atraumatic, Normocephaly, Mucus Membranes Moist Cardiac: Reg Rate and Rhythm, Normal S1 and S2 Lungs: Normal Breath Sounds Neuro: Alert and responsive Abdomen: Soft, Non-Tender Skin: No rashes noted on visualized skin Musculoskeletal: No Chest Wall Tenderness Extremities: No Edema, Normal Pulses Results 05/18/16 04:34 05/18/16 04:34 Lab Results 05/18/16 05/18/16 04:34 04:34 WBC 3.7 L D Hgb 11.8 D Hct 35.2 L Plt Count 100 L Sodium 135 L Potassium 3.7 Chloride 106 Carbon Dioxide 19 BUN 16 Creatinine 0.69 Glucose 103 H Calcium 8.5 L Active Medications Carvedilol (Coreg) 3.125 mg PO BIDWM CHARI PRN Reason: Protocol Stop: 11/15/16 18:23 Last Admin: 05/18/16 08:35 Dose: 3.125 mg Chlordiazepoxide HCl (Librium) 50 mg PO QID CHARI Stop: 11/16/16 13:01 Last Admin: 05/18/16 08:35 Dose: 50 mg Folic Acid (Folic Acid) 1 mg PO DAILY CHARI Stop: 11/15/16 09:01 Last Admin: 05/18/16 08:36 Dose: 1 mg Heparin Sodium (Porcine) (Heparin) 5,000 unit SQ Q12HR CHARI Stop: 11/15/16 06:01 Last Admin: 05/18/16 06:29 Dose: 5,000 unit Hydralazine HCl (Hydralazine) 10 mg IVP Q6HR PRN PRN Reason: Hypertension Stop: 11/15/16 20:32 Ceftriaxone Sodium 1,000 mg/ (Dextrose) 100 mls @ 200 mls/hr IVPB Q24H CHARI Stop: 11/15/16 04:01 Last Infusion: 05/18/16 04:53 Dose: Infused Potassium Chloride/Sodium Chloride (Kcl 20 Meq In 0.9% Sodium Chloride) 20 meq in 1,000 mls @ 100 mls/hr IVC .Q10H CHARI Stop: 11/16/16 09:31 Last Admin: 05/18/16 00:40 Dose: 100 mls/hr Dexmedetomidine HCl (Precedex) 400 mcg in 100 mls @ 6.388 mls/hr IVC .[id number] CHARI; 0.5 MCG/KG/HR PRN Reason: Protocol Stop: 11/16/16 13:46 Last Titration: 05/18/16 11:37 Dose: 0 mcg/kg/hr, 0 mls/hr Lorazepam (Ativan) 1 mg IVP Q1H PRN PRN Reason: Alcohol Withdrawal Stop: 11/15/16 00:52 Last Admin: 05/17/16 12:28 Dose: 1 mg Lorazepam (Ativan) 2 mg IVP Q4HR PRN PRN Reason: CIWA Score of 10-21 Stop: 11/15/16 00:52 Last Admin: 05/17/16 20:39 Dose: 2 mg Lorazepam (Ativan) 4 mg IVP Q4HR PRN PRN Reason: CIWA Score of 22-45 Stop: 11/15/16 00:52 Multi-Ingredient Mouthwash/Gargle (Magic Mouthwash) 10 ml PO TIDAC CHARI Stop: 11/15/16 03:31 Last Admin: 05/18/16 08:44 Dose: 10 ml Multi-Ingredient Mucositis [place] (Chloraseptic) 2 spray MM QID PRN PRN Reason: Sore Throat Stop: 11/15/16 03:24 Last Admin: 05/16/16 04:16 Dose: 2 spray Naloxone HCl (Narcan) 0.4 mg IVP Q2MIN PRN PRN Reason: Opioid Reversal Stop: 11/15/16 03:17 Nicotine Polacrilex (Nicorette Gum) 2 mg BC Q2H PRN PRN Reason: Nicotine Cravings Stop: 11/16/16 08:47 Last Admin: 05/18/16 03:21 Dose: 2 mg Nitroglycerin (Nitroglycerin) 0.4 mg SL Q5MIN PRN PRN Reason: Chest Pain Stop: 11/14/16 20:32 Last Admin: 05/15/16 20:38 Dose: 0.4 mg Omeprazole (Prilosec) 40 mg PO DAILY@0630 CHARI PRN Reason: Protocol Stop: 11/16/16 06:31 Last Admin: 05/18/16 06:28 Dose: 40 mg Potassium Chloride (Potassium Chloride) 20 meq PO DAILY CHARI Stop: 11/15/16 09:16 Last Admin: 05/18/16 08:35 Dose: 20 meq Thiamine HCl (Vitamin B-1) 100 mg PO DAILY CHARI Stop: 11/15/16 09:01 Last Admin: 05/18/16 08:35 Dose: 100 mg Vitamin B Complex/Vit C/Vit E (Stresstab) 1 each PO DAILY CHARI Stop: 11/15/16 09:01 Last Admin: 05/18/16 08:35 Dose: 1 each - Imaging and Cardiology Echo: report reviewed Other Results: 12 hour tele: avg HR=73 SR. No significant event noted. - EKG Interpretation EKG results cardiology: personally reviewed Consult Discharge Plan - Plan Referrals: NO,PCP [Primary Care Provider] -
[2016-05-18] MEDS: Aspirin Enteric Coated 81 MG Tablet PO SCH (14:16)
[2016-05-18] MEDS: *HR* LORazepam 2 MG/ML VIAL IVP PRN (14:22)
--- NOTE | 2016-05-18 14:46 | Internal Med Progress Note ---
Date of Encounter: 05/18/16 Time of Encounter: 09:25 - Assessment and plan (1) Alcohol dependence with withdrawal Current Visit: Yes Status: Acute Assessment and plan: Patient with alcohol withdrawal and delirium. Improving with the use of Precedex and Ativan as needed along with Librium. Continue monitoring in stepdown unit today. Wean Precedex as tolerated. Continue monitoring per [facility] protocol. High risk for complications. Qualifiers: Complication of substance-induced condition: with delirium Qualified Code(s ): F10.231 - Alcohol dependence with withdrawal delirium (2) Hypokalemia Current Visit: Yes Status: Resolved (3) Seizure Current Visit: Yes Status: Acute Assessment and plan: Due to alcohol withdrawal. No new episodes of seizures. (4) Abnormal EKG Current Visit: Yes Status: Acute Assessment and plan: Audiology evaluated patient. 2-D echocardiogram done which showed mild basal hypokinesis with normal ejection fraction. Recommend outpatient follow-up with cardiology for further workup. (5) UTI (urinary tract infection) Current Visit: Yes Status: Acute Assessment and plan: Urine growing gram-positive cocci. We will give 1 dose of vancomycin intravenously. Qualifiers: Urinary tract infection type: acute cystitis Hematuria presence: without hematuria Qualified Code(s): N30.00 - Acute cystitis without hematuria (6) Nausea and vomiting Current Visit: Yes Status: Resolved Qualifiers: Vomiting type: unspecified Vomiting Intractability: non-intractable Qualified Code(s): R11.2 - Nausea with vomiting, unspecified (7) Polysubstance abuse Current Visit: Yes Status: Acute Assessment and plan: end worker consulted. - Subjective Interval history: Patient in stepdown unit. Still disoriented and tremulous. On IV Precedex drip. Less agitated compared to yesterday. Less risk for harm to self at this time. - Constitutional Vitals: Temp Pulse Resp BP Pulse Ox 98.1 F 79 20 122/100 100 05/18/16 11:54 05/18/16 12:04 05/18/16 11:54 05/18/16 06:33 05/18/16 11:54 General appearance: Present: cooperative, mild distress, A&O X 3, answers questions appropriately - Neck Neck exam general surgery: Present: supple, trachea midline. Absent: lymphadenopathy - Respiratory Respiratory exam: Present: CTAB. Absent: accessory muscle use, rales, rhonchi, wheezes - Cardiovascular Cardiovascular exam: Present: RRR, +S1, +S2. Absent: diastolic murmur, gallop, rubs, systolic murmur - GI/Abdominal GI/Abdominal exam: Present: normal bowel sounds, soft, no peritoneal signs. Absent: distended, tenderness - Extremities Exam Extremities exam: Present: warm, radial pulses palpable and symetrical. Absent : calf tenderness, cyanotic, pedal edema - Neurological Exam Neurological exam: Present: CN II-XII intact, oriented X3, no focal deficits. Absent: pronater drift, facial droop, speech deficit Additional comments: Tremors in bilateral upper extremity is improving - Psychiatric Psychiatric exam: Present: anxious - Skin Skin exam: Present: dry, intact Internal Medicine: Result - Labs CBC & Chem 7: 05/18/16 04:34 05/18/16 04:34 Labs: Short CBC 05/18/16 Range/Units 04:34 WBC 3.7 L D (4.3-11.1) K/mcL Hgb 11.8 D (11.5-15.4) g/dL Hct 35.2 L (35.3-44.9) % Plt Count 100 L (140-400) K/mcL Neutrophils # 2.0 (1.6-8.9) K/mcL BMP 05/18/16 04:34 Sodium 135 L Potassium 3.7 Chloride 106 Carbon Dioxide 19 BUN 16 Creatinine 0.69 Glucose 103 H Calcium 8.5 L - ABG Interpretation ABG results: PT/INR, D-dimer PT 11.4 Seconds (9.4-12.1) 05/15/16 20:39 Consult Discharge Plan - Plan Referrals: NO,PCP [Primary Care Provider] - - Attending Attestation This document has been at least partially created by [employer] recognition technology by Dr. Gamez. Errors in grammar, wording or other phrases may exist. If errors are found after the documentation is signed, they will be addressed individually in the addendum section of this document when appropriate.
[2016-05-18] MEDS ORDERED: Vancomycin 750 MG in D5% in Water 250 ML IVPB SCH (15:00)
[2016-05-18] MEDS: Vancomycin 750 MG in D5% in Water 250 ML IVPB SCH (17:41)
[2016-05-19] MEDS: *HR* LORazepam 2 MG/ML VIAL IVP PRN ×2 (02:04→09:41)
[2016-05-19] MEDS: Vancomycin 750 MG in D5% in Water 250 ML IVPB SCH (05:38)
[2016-05-19] MEDS: *HR* Heparin 5,000 UNIT/ML VIAL SQ SCH ×2 (05:38→16:54)
[2016-05-19] MEDS: Aspirin Enteric Coated 81 MG Tablet PO SCH (08:54)
[2016-05-19] MEDS: Thiamine (B-1) 100 MG TABLET PO SCH (08:54)
[2016-05-19] MEDS: Folic Acid 1 MG TABLET PO SCH (08:54)
[2016-05-19] MEDS: Vitamin B Complex/Vit C/Vit E 1 EACH TABLET PO SCH (08:54)
[2016-05-19] MEDS: Magic Mouthwash 10 ML UD Cup PO SCH ×3 (08:54→18:21)
--- NOTE | 2016-05-19 15:03 | Internal Med Progress Note ---
Date of Encounter: 05/19/16 Time of Encounter: 08:25 - Assessment and plan (1) Alcohol dependence with withdrawal Current Visit: Yes Status: Acute Assessment and plan: Continue management per [facility] protocol. Will decrease dosage of Librium. Moderate risk for complications. Qualifiers: Complication of substance-induced condition: with delirium Qualified Code(s ): F10.231 - Alcohol dependence with withdrawal delirium (2) Hypokalemia Current Visit: Yes Status: Resolved (3) Seizure Current Visit: Yes Status: Resolved Assessment and plan: No further episodes of seizures. Most likely related to alcohol withdrawal. (4) Abnormal EKG Current Visit: Yes Status: Acute Assessment and plan: Follow-up with cardiology as outpatient. No chest pain. (5) UTI (urinary tract infection) Current Visit: Yes Status: Acute Assessment and plan: Urine culture positive for Streptococcus mutans. Could be contaminant. Complete short treatment course with antibiotics. 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 She has been off Precedex drip since yesterday evening. No other acute issues reported overnight. No fever chills or night sweats. - Constitutional Vitals: Temp Pulse Resp BP Pulse Ox 98.9 F 85 16 113/77 97 05/19/16 11:06 05/19/16 12:32 05/19/16 11:06 05/19/16 11:06 05/19/16 11:06 Exam: Patient is currently very somnolent. Awakes but does not respond to questions. - Respiratory Respiratory exam: Present: CTAB. Absent: accessory muscle use, rales, rhonchi, wheezes - Cardiovascular Cardiovascular exam: Present: RRR, +S1, +S2. Absent: diastolic murmur, gallop, rubs, systolic murmur - GI/Abdominal GI/Abdominal exam: Present: normal bowel sounds, soft, no peritoneal signs. Absent: distended, tenderness - Extremities Exam Extremities exam: Present: warm, radial pulses palpable and symetrical. Absent : calf tenderness, cyanotic, pedal edema - Neurological Exam Neurological exam: Absent: facial droop, speech deficit Additional comments: Unable to complete neuro exam at this time - Skin Skin exam: Present: dry, intact Internal Medicine: Result - Labs CBC & Chem 7: 05/18/16 04:34 05/18/16 04:34 - ABG Interpretation ABG results: PT/INR, D-dimer PT 11.4 Seconds (9.4-12.1) 05/15/16 20:39 Consult Discharge Plan - Plan Referrals: Rocío Romo CNP [Partnered Physician] - 06/14/16 2:30 pm NO,PCP [Primary Care Provider] - Carlos Valdez DO [Partnered Physician] - 05/26/16 1:30 pm - Attending Attestation This document has been at least partially created by [employer] voice recognition technology by Dr. Gamez. Errors in grammar, wording or other phrases may exist. If errors are found after the documentation is signed, they will be addressed individually in the addendum section of this document when appropriate.
[2016-05-20] MEDS: *HR* Heparin 5,000 UNIT/ML VIAL SQ SCH (06:09)
[2016-05-20] MEDS: Thiamine (B-1) 100 MG TABLET PO SCH (07:56)
[2016-05-20] MEDS: Aspirin Enteric Coated 81 MG Tablet PO SCH (07:56)
[2016-05-20] MEDS: Vitamin B Complex/Vit C/Vit E 1 EACH TABLET PO SCH (07:56)
[2016-05-20] MEDS: Folic Acid 1 MG TABLET PO SCH (07:57)
[2016-05-20] MEDS: Magic Mouthwash 10 ML UD Cup PO SCH (07:57)
--- NOTE | 2016-05-20 08:51 | Discharge Summary ---
Date of Encounter: 05/20/16 Time of Encounter: 08:40 - Discharge Diagnosis (1) Alcohol dependence with withdrawal Priority: Primary Status: Acute Qualifiers: Complication of substance-induced condition: with delirium Qualified Code(s ): F10.231 - Alcohol dependence with withdrawal delirium (2) Hypokalemia Priority: Secondary Status: Resolved (3) Seizure Priority: Secondary Status: Resolved (4) Abnormal EKG Priority: Secondary Status: Acute (5) UTI (urinary tract infection) Priority: Secondary Status: Acute Qualifiers: Urinary tract infection type: acute cystitis Hematuria presence: without hematuria Qualified Code(s): N30.00 - Acute cystitis without hematuria (6) Nausea and vomiting Priority: Secondary Status: Resolved Qualifiers: Vomiting type: unspecified Vomiting Intractability: non-intractable Qualified Code(s): R11.2 - Nausea with vomiting, unspecified (7) Polysubstance abuse Priority: Secondary Status: Acute - Discharge Medications Prescriptions: Aspirin Enteric Coated [Aspirin EC] 81 mg PO DAILY #30 tablet. Carvedilol [Coreg] 6.25 mg PO BIDWM #60 tablet Cephalexin [Keflex] 500 mg PO QID #20 capsule Home Medications: Aspirin Enteric Coated [Aspirin EC] 81 mg PO DAILY #30 tablet. 05/20/16 [Rx] Carvedilol [Coreg] 6.25 mg PO BIDWM #60 tablet 05/20/16 [Rx] Cephalexin [Keflex] 500 mg PO QID #20 capsule 05/20/16 [Rx] Allergies/Adverse Reactions: Allergies sulfamethoxazole [From Bactrim] Allergy (Verified 04/03/16 08:29) Hives trimethoprim [From Bactrim] Allergy (Verified 04/03/16 08:29) Hives codeine Adverse Reaction (Verified 03/31/16 13:16) Nausea meclizine Adverse Reaction (Verified 03/31/16 13:16) Headache Procedures/tests Complete & Pending: Procedures Performed prior 72 hours Category Date Time Status ECG 12 lead ECG [ECG] Routine Y 05/17/16 10:18 Completed EV echocardiogram Routine Y 05/17/16 11:26 Completed Date of admission: 05/16/16 03:16 Primary care physician: PCP NO Consults: 05/17/16 09:17 Consult to Cardiology [CONS] Routine Comment: Consulting Provider: [facility] [place] Reason for Consult: Abnormal EKG/ concern for NSTEMi Time Notified: 09:17 Call Completed: No Discharging clinician: Kalpana Gamez Anticipated date of discharge: 05/20/16 - Patient Status Disposition: Home, Self-Care Condition: Good Functional capacity at discharge: independent ambulation Overall status at discharge: patient is back to baseline - Discharge Instructions Instructions: Urinary Tract Infection in Women (DC) Follow Up With: Rocío Romo CNP [Partnered Physician] - 06/14/16 2:30 pm NO,PCP [Primary Care Provider] - Carlos Valdez DO [Partnered Physician] - 05/26/16 1:30 pm - Diet and Activity Activity: increase activity as tolerated Diet: low fat, low cholesterol, low salt diet Hospital course: Ms. Aguilar is a 51 year old female patient with a history of hypertension, alcohol abuse was admitted here following a seizure which was believed to be due to alcohol withdrawal. She was monitored with seizure precautions and then with the CIWA protocol. She developed severe alcohol withdrawal with delirium and hallucinations. She required multiple doses of intravenous benzodiazepines to control her symptoms. She was then transferred to stepdown unit and placed on Precedex as she did not respond much to just benzodiazepines. She was also placed on oral Librium. With this treatment regimen, her sick alcohol withdrawal symptoms were controlled. Presently she is doing much better and has not required any Ativan since yesterday. She is also not on Precedex for more than 48 hours. She is clinically stable for discharge and been provided resources to seek treatment for her alcohol abuse. She also had some chest pain on presentation with some abnormal EKG changes. Cardiology evaluated the patient and she underwent an echocardiogram which showed some basal hypokinesis. Cardiology recommends outpatient stress test and follow-up which will be arranged. Patient also has significant hypertension and has been placed on carvedilol with improvement in her blood pressure. She will continue this medication and follow-up with cardiology and primary care provider for further management. Patient has had no further episodes of seizures. She does not require antiseizure medications at this time. Patient was also treated for UTI and her urine culture was positive for strep mittens. She will complete treatment with cephalexin. - Time Spent with Patient Total time spent providing and/or coordinating discharge services: Greater than 30 minutes (45 min) - Constitutional Vitals: Temp Pulse Resp BP Pulse Ox 98.5 F 86 16 152/99 98 05/20/16 04:53 05/20/16 04:53 05/20/16 04:53 05/20/16 04:53 05/20/16 04:53 General appearance: Present: cooperative, A&O X 3, pleasant, no acute distress, answers questions appropriately - Neck Neck exam general surgery: Present: supple, trachea midline. Absent: lymphadenopathy - Respiratory Respiratory exam: Present: CTAB. Absent: accessory muscle use, rales, rhonchi, wheezes - Cardiovascular Cardiovascular exam: Present: RRR, +S1, +S2. Absent: diastolic murmur, gallop, rubs, systolic murmur - GI/Abdominal GI/Abdominal exam: Present: normal bowel sounds, soft, no peritoneal signs. Absent: distended, tenderness - Neurological Exam Neurological exam: Present: alert, oriented X3, no focal deficits. Absent: facial droop, speech deficit - Attending Attestation This document has been at least partially created by [employer] voice recognition technology by Dr. Gamez. Errors in grammar, wording or other phrases may exist. If errors are found after the documentation is signed, they will be addressed individually in the addendum section of this document when appropriate.
[2016-05-20 09:05] VITALS: BP 137/92
[2016-05-20] MEDS ORDERED: Aminoglycoside Consult 1 EACH MC ONE (12:33)
== END 2016-05-20 12:34 | disposition home or self-care (01) | DRG 897 ==
LOC: EMEROO 19:43 → 2ANU 19:43 → SUATTDRO 05-16 03:16 → 2NNU 05-17 14:34
PROVIDERS: ADMIT Internal Medicine; ATTEND Internal Medicine